=== PATIENT | female | born 1950 | race Caucasian/White ===

== ENCOUNTER 2017-07-12 17:40 | Emergency (ER) | payer MEDICARE ==
[~2017-07-12] VITALS: Ht 162.6 cm; Wt 86.2 kg
--- NOTE | 2017-07-12 17:52 | PHYS DOC ---
Adult General Chief Complaint Chief Complaint: ABDOMINAL PAIN HPI HPI Patient is a 66 year old female who presents with lower quadrant pain. She states it started last night his been slowly getting worse all day long. She hasn't had a bowel movement since she has today. She's felt nauseated but hasn't vomited. She denies any fevers or chills. She is traveling from [place] and is staying at the [facility]. She states she's never had pain like this before. She states she is very sensitive to pain medicine as it makes her nauseated. She states she's had a history of . No other surgeries. She denies tobacco abuse, she states he's on no medicines and has been diagnosed with any chronic diseases. Review of Systems Review of Systems Constitutional: Denies fever or chills [] Eyes: Denies change in visual acuity, redness, or eye pain [] HENT: Denies nasal congestion or sore throat [] Respiratory: Denies cough or shortness of breath [] Cardiovascular: No additional information not addressed in HPI [] GI: Positive for abdominal pain, nausea, denies any vomiting, bloody stools or diarrhea [] : Denies dysuria or hematuria [] Musculoskeletal: Denies back pain or joint pain [] Integument: Denies rash or skin lesions [] Neurologic: Denies headache, focal weakness or sensory changes [] Endocrine: Denies polyuria or polydipsia [] Current Medications Current Medications Current Medications Medications (Trade) Dose Ordered Sig/[facility] Start Time Stop Time Status Last Admin Dose Admin Acetaminophen (Tylenol) 1,000 mg 1X ONCE 07/12/17 22:00 07/12/17 22:01 DC 07/12/17 21:38 1,000 MG Fentanyl Citrate (Fentanyl 2ml Vial) 50 mcg PRN Q15MIN PRN 07/12/17 18:30 07/13/17 18:29 07/12/17 18:55 50 MCG Info (Do NOT chart on this entry -- for MONITORING) 1 each PRN DAILY PRN 07/12/17 19:15 07/14/17 19:14 Iohexol (Omnipaque 300 Mg/ml) 75 ml 1X ONCE 07/12/17 19:15 07/12/17 19:16 DC 07/12/17 19:16 75 ML Ketorolac Tromethamine (Toradol) 30 mg 1X ONCE 07/12/17 21:15 07/12/17 21:16 DC 07/12/17 21:38 30 MG Morphine Sulfate 2 mg PRN Q15MIN PRN 07/12/17 19:45 07/13/17 19:44 07/12/17 20:16 2 MG Ondansetron HCl (Zofran) 4 mg 1X ONCE 07/12/17 18:15 07/12/17 18:20 DC 07/12/17 18:40 4 MG Sodium Chloride 1,000 ml @ 125 mls/hr Q8H 07/12/17 21:30 07/12/17 21:38 125 MLS/HR Tamsulosin HCl (Flomax) 0.4 mg 1X ONCE 07/12/17 21:30 07/12/17 21:31 DC 07/12/17 21:38 0.4 MG Allergies Allergies Allergies Coded Allergies Type Severity Reaction Last Updated Verified tramadol Adverse Reaction Mild "makes me loony" 07/12/17 Yes Physical Exam Physical Exam Constitutional: Well developed, well nourished, no acute distress, non-toxic appearance. [] HENT: Normocephalic, atraumatic, bilateral external ears normal, oropharynx moist, no oral exudates, nose normal. [] Eyes: PERRLA, EOMI, conjunctiva normal, no discharge. [] Neck: Normal range of motion, no tenderness, supple, no stridor. [] Cardiovascular:Heart rate regular rhythm, no murmur [] Lungs & Thorax: Bilateral breath sounds clear to auscultation [] Abdomen: Bowel sounds hypoactive, soft, tender to palpation left lower quadrant , no rebound or guarding, no masses, no pulsatile masses. [] Skin: Warm, dry, no erythema, no rash. [] Back: No tenderness, no CVA tenderness. [] Extremities: No tenderness, no cyanosis, no clubbing, ROM intact, no edema. [] Neurologic: Alert and oriented X 3, normal motor function, normal sensory function, no focal deficits noted. [] Psychologic: Affect normal, judgement normal, mood normal. [] Current Patient Data Vital Signs Vital Signs Date Time Temp Pulse Resp B/P (MAP) Pulse Ox O2 Delivery O2 Flow Rate FiO2 07/12/17 22:00 74 19 146/63 (90) 98 07/12/17 21:14 Room Air 07/12/17 18:00 98.1 98.1 Lab Values Laboratory Tests Test 07/12/17 18:00 07/12/17 19:30 White Blood Count 8.7 x10^3/uL (4.0-11.0) Red Blood Count 4.56 x10^6/uL (3.50-5.40) Hemoglobin 13.3 g/dL (12.0-15.5) Hematocrit 40.7 % (36.0-47.0) Mean Corpuscular Volume 89 fL (79-100) Mean Corpuscular Hemoglobin 29 pg (25-35) Mean Corpuscular Hemoglobin Concent 33 g/dL (31-37) Red Cell Distribution Width 14.7 % (11.5-14.5) H Platelet Count 250 x10^3/uL (140-400) Neutrophils (%) (Auto) 81 % (31-73) H Lymphocytes (%) (Auto) 14 % (24-48) L Monocytes (%) (Auto) 3 % (0-9) Eosinophils (%) (Auto) 1 % (0-3) Basophils (%) (Auto) 1 % (0-3) Neutrophils # (Auto) 7.1 x10^3uL (1.8-7.7) Lymphocytes # (Auto) 1.2 x10^3/uL (1.0-4.8) Monocytes # (Auto) 0.3 x10^3/uL (0.0-1.1) Eosinophils # (Auto) 0.0 x10^3/uL (0.0-0.7) Basophils # (Auto) 0.1 x10^3/uL (0.0-0.2) Prothrombin Time 12.8 SEC (11.7-14.0) Prothrombin Time INR 1.0 (0.8-1.1) PTT 30 SEC (24-38) Sodium Level 141 mmol/L (136-145) Potassium Level 3.4 mmol/L (3.5-5.1) L Chloride Level 103 mmol/L (98-107) Carbon Dioxide Level 28 mmol/L (21-32) Anion Gap 10 (6-14) Blood Urea Nitrogen 22 mg/dL (7-20) H Creatinine 0.9 mg/dL (0.6-1.0) Estimated GFR (Cockcroft-Gault) 62.3 Glucose Level 136 mg/dL (70-99) H Lactic Acid Level 1.9 mmol/L (0.4-2.0) Calcium Level 10.3 mg/dL (8.5-10.1) H Total Bilirubin 0.7 mg/dL (0.2-1.0) Direct Bilirubin 0.1 mg/dL (0.0-0.2) Aspartate Amino Transferase (AST) 23 U/L (15-37) Alanine Aminotransferase (ALT) 27 U/L (14-59) Alkaline Phosphatase 76 U/L (46-116) Creatine Kinase 244 U/L (26-192) H Creatine Kinase MB (Mass) 1.8 ng/mL (0.0-3.6) Creatine Kinase MB Relative Index 0.7 % (0-4) Total Protein 7.6 g/dL (6.4-8.2) Albumin 4.1 g/dL (3.4-5.0) Lipase 128 U/L (73-393) Urine Color Yellow Urine Clarity Clear Urine pH 6.0 Urine Specific Rowe >=1.030 Urine Protein Negative mg/dL (NEG-TRACE) Urine Glucose (UA) Negative mg/dL (NEG) Urine Ketones (Stick) 40 mg/dL (NEG) Urine Blood Large (NEG) Urine Nitrite Negative (NEG) Urine Bilirubin Negative (NEG) Urine Urobilinogen Dipstick 0.2 mg/dL (0.2 mg/dL) Urine Leukocyte Esterase Negative (NEG) Urine RBC 11-20 /HPF (0-2) Urine WBC Occ /HPF (0-4) Urine Squamous Epithelial Cells Occ /LPF Urine Bacteria 0 /HPF (0-FEW) Laboratory Tests 07/12/17 18:00 Laboratory Tests 07/12/17 18:00 EKG EKG [] Radiology/Procedures Radiology/Procedures [facility] [address] [place] [address] IMAGING REPORT Signed PATIENT: ROSARIO BLACKWELL ACCOUNT: [id number] : 1950 LOCATION: ER AGE: 66 SEX: F EXAM STATUS: REG ER ORD. PHYSICIAN: NINO ALANIZ MD REASON: llq pain PROCEDURE: CT ABD PELV W/ IV CONTRST ONLY Indication: Left lower quadrant pain beginning yesterday. Technique: Axial images and coronal and sagittal reformatted images are provided. 75 mL of intravenous Omnipaque 300 was administered without complication. No comparison is available. One or more of the following individualized dose reduction techniques were utilized for this examination: 1. Automated exposure control 2. Adjustment of the mA and/or kV according to patient size 3. Use of iterative reconstruction technique Findings: There is minimal dependent atelectasis on the left. There is no pleural effusion. The heart is not enlarged. There is mild fatty infiltration of the liver. Gallbladder is contracted. Benign calcifications are noted in the spleen. Pancreas and adrenals are unremarkable. There is a subcentimeter probable cyst in the right kidney. There is stranding of the left perinephric fat and the left ureter is dilated to the level of an obstructing calculus in the mid ureter measuring 4 mm in size. Aorta is normal caliber with minimal atheromatous disease. Lack of oral contrast limits evaluation of bowel. There is a small hiatal hernia. There is no small bowel obstruction or mural thickening. There are diverticula in the colon. There is no findings of a diverticulitis. Short appendix is visualized, no secondary findings of an appendicitis. There is no bladder calculus. There is no adnexal mass. There are calcified phleboliths. There are minimal degenerative changes in the spine. IMPRESSION: 1. There is a 4 mm obstructing calculus mid left ureter. 2. Diverticulosis without findings of diverticulitis. 3. Small hiatal hernia. Electronically signed by: Annalisa Caba MD (07/12/2017 8:45 PM) [facility] DICTATED and SIGNED BY: ANNALISA CABA MD DATE: 07/12/172040 CC: NINO ALANIZ MD; UNKNOWN PCP NAME ~ Impressions: Left obstructing ureteral stone Course & Med Decision Making Course & Med Decision Making Pertinent Labs and Imaging studies reviewed. (See chart for details) CT scan shows a 4 mm obstructive stone. She received 25 g of fentanyl 2 and then 2 mg morphine 2 for pain has improved. She also was started on 30 mg IV Toradol in addition to 0.4 mg Flomax and 1 g of Tylenol. At this point the patient will need to be transferred to as we lack urology coverage here [place]. At this time patient is being checked out to Dr. Landers awaiting acceptance at . Patient's in stable condition at this time. Adavied 2347: On reexamination the patient is asymptomatic and would like to go home. Patient states she is a urologist in [place] that she would like to follow up with. Patient does not feel she was transferred to since the pain has resolved. Discussed pain management with discharge and agreed with Percocet, Zofran, Flomax. transfer center was contacted and the transfer was canceled. DO Thuy Hackett Disclaimer Thuy Disclaimer This electronic medical record was generated, in whole or in part, using a voice recognition dictation system. Departure Departure Impression: Primary Impression: Ureteral stone Disposition: HOME, SELF-CARE Condition: IMPROVED Patient Instructions: Kidney Stones Additional Instructions: Please follow-up with your family physician or urologist want to return back to [place] as soon as possible. If symptoms get worse or pain is intolerable please return the emergency room immediately. Scripts Tamsulosin Hcl (FLOMAX) 0.4 Mg Cap.er.24h 1 CAP PO DAILY for 7 Days, #7 CAP 11 Refills Prov: KRYSTINA LANDERS DO 07/12/17 Oxycodone/Apap 5-325 (PERCOCET 5-325 MG TABLET) 1 Each Tablet 1-2 TAB PO Q4-6HRS, #20 TAB Prov: KRYSTINA LANDERS DO 07/12/17 Ondansetron (ZOFRAN ODT) 4 Mg Tab.rapdis 1 TAB SL Q8HRS, #10 TAB Prov: KRYSTINA LANDERS DO 07/12/17 NINO ALANIZ MD Jul 12, 2017 17:52 KRYSTINA LANDERS DO Jul 12, 2017 23:53
[2017-07-12] MEDS ORDERED: IV NORMAL SALINE 1000ML BAG 1,000 ML IV SCH ×2 (18:02→21:30)
[2017-07-12] MEDS ORDERED: MORPHINE SULFATE 4 MG/ML DISP.SYRIN. IV/SQ PRN (18:15)
[2017-07-12] MEDS ORDERED: ONDANSETRON PF 4 MG/2 ML VIAL. IV ONE (18:15)
[2017-07-12 18:21] LABS: BASO # 0.1 x10^3/uL (0.0-0.2); BASO % 1 % (0-3); EOS % 1 % (0-3); HEMATOCRIT 40.7 % (36.0-47.0); HEMOGLOBIN 13.3 g/dL (12.0-15.5); LYMPH # 1.2 x10^3/uL (1.0-4.8); LYMPH % 14 % (24-48); MEAN CORPUSCULAR HEMOGLOBIN 29 pg (25-35); MEAN CORPUSCULAR HGB CONC 33 g/dL (31-37); MEAN CORPUSCULAR VOLUME 89 fL (79-100); MONO % 3 % (0-9); NEUT % 81 % (31-73); PLATELET COUNT 250 x10^3/uL (140-400); RED BLOOD COUNT 4.56 x10^6/uL (3.50-5.40); RED CELL DISTRIBUTION WIDTH 14.7 % (11.5-14.5); WHITE BLOOD COUNT 8.7 x10^3/uL (4.0-11.0)
[2017-07-12 18:30] LABS: PROTHROMBIN TIME PATIENT 12.8 SEC (11.7-14.0)
[2017-07-12] MEDS: fentaNYL PF VIAL 100 MCG/2 ML VIAL IV PRN ×2 (18:35→18:55)
[2017-07-12 18:42] LABS: CALCIUM 10.3 mg/dL (8.5-10.1); CREATININE 0.9 mg/dL (0.6-1.0); GFR 62.3; POTASSIUM 3.4 mmol/L (3.5-5.1)
[2017-07-12 18:50] LABS: ALBUMIN 4.1 g/dL (3.4-5.0); DIRECT BILIRUBIN 0.1 mg/dL (0.0-0.2); TOTAL BILIRUBIN 0.7 mg/dL (0.2-1.0); TOTAL PROTEIN 7.6 g/dL (6.4-8.2)
[2017-07-12 18:57] LABS: CKMB MASS 1.8 ng/mL (0.0-3.6)
[2017-07-12] MEDS ORDERED: CONTRAST GIVEN MC PRN (19:15)
[2017-07-12] MEDS ORDERED: IOHEXOL 300 MG/ML 75 ML VIAL IV ONE (19:15)
[2017-07-12] MEDS: MORPHINE SULFATE 4 MG/ML DISP.SYRIN. IV/SQ PRN ×3 (19:39→20:16)
[2017-07-12 20:10] LABS: BILIRUBIN,URINE NEGATIVE (NEG); GLUCOSE,URINE NEGATIVE (NEG); NITRITE,URINE NEGATIVE (NEG); PROTEIN,URINE NEGATIVE (NEG-TRACE); UROBILINOGEN,URINE 0.2 mg/dL (0.2 mg/dL)
[2017-07-12 20:33] LABS: BACTERIA,URINE 0 /HPF (0-FEW); SQUAMOUS EPITHELIAL CELL,UR OCC /LPF; WBC,URINE OCC /HPF (0-4)
--- NOTE | 2017-07-12 20:48 | RAD ---
Indication: Left lower quadrant pain beginning yesterday. Technique: Axial images and coronal and sagittal reformatted images are provided. 75 mL of intravenous Omnipaque 300 was administered without complication. No comparison is available. One or more of the following individualized dose reduction techniques were utilized for this examination: 1. Automated exposure control 2. Adjustment of the mA and/or kV according to patient size 3. Use of iterative reconstruction technique Findings: There is minimal dependent atelectasis on the left. There is no pleural effusion. The heart is not enlarged. There is mild fatty infiltration of the liver. Gallbladder is contracted. Benign calcifications are noted in the spleen. Pancreas and adrenals are unremarkable. There is a subcentimeter probable cyst in the right kidney. There is stranding of the left perinephric fat and the left ureter is dilated to the level of an obstructing calculus in the mid ureter measuring 4 mm in size. Aorta is normal caliber with minimal atheromatous disease. Lack of oral contrast limits evaluation of bowel. There is a small hiatal hernia. There is no small bowel obstruction or mural thickening. There are diverticula in the colon. There is no findings of a diverticulitis. Short appendix is visualized, no secondary findings of an appendicitis. There is no bladder calculus. There is no adnexal mass. There are calcified phleboliths. There are minimal degenerative changes in the spine. IMPRESSION: 1. There is a 4 mm obstructing calculus mid left ureter. 2. Diverticulosis without findings of diverticulitis. 3. Small hiatal hernia. Electronically signed by: Tj Caba MD (07/12/2017 8:45 PM) [facility]
[2017-07-12] MEDS ORDERED: KETOROLAC 30 MG/ML INJ. IV ONE (21:15)
[2017-07-12] MEDS ORDERED: TAMSULOSIN 0.4 MG CAP.ER.24H. PO ONE (21:30)
[2017-07-12] MEDS ORDERED: ACETAMINOPHEN 500 MG TABLET PO ONE (22:00)
[2017-07-12 23:00] VITALS: BP 118/47
[2017-07-12] MEDS ORDERED: TAMS0.4C97 PO (23:53)
[2017-07-12] MEDS ORDERED: OXYC-323 PO (23:53)
[2017-07-12] MEDS ORDERED: ONDA4TAB10 SL (23:53)
== END 2017-07-13 00:01 | disposition home or self-care (01) ==
LOC: ER 17:40
DX: N20.1 Calculus of ureter (principal); Z88.5 Allergy status to narcotic agent
CPT/HCPCS: 36415; 74177; 80048; 80076; 81001; 82553; 83605; 83690; 85025; 85610; 85730; 96361; 96374; 96375; 96376; 99285; J1885; J2270; J2405; J3010; J7030; P9612; Q9967